=== PATIENT | female | born 1960 | race Caucasian/White ===

== ENCOUNTER 2021-08-18 17:56 | Inpatient (IN) ==
[2021-08-18] MEDS: Gabapentin 400 MG CAPSULE PO SCH (20:39)
[2021-08-18] MEDS: traZODone 50 MG TABLET PO SCH (20:39)
[2021-08-18] MEDS ORDERED: Insulin DETEMIR 100 UNIT/ML per UNIT SUBQ ONE (21:00)
[2021-08-18] MEDS ORDERED: *HR* OxyCODONE Immed Rel 5 MG TABLET PO PRN (21:27)
[2021-08-18] MEDS: *HR* OxyCODONE Immed Rel 5 MG TABLET PO PRN (21:36)
[2021-08-19] MEDS: *HR* OxyCODONE Immed Rel 5 MG TABLET PO PRN ×3 (05:20→20:06)
[2021-08-19] MEDS: Cefepime HCl 2,000 MG in Water for inj. (sterile) 20 ML IVP SCH ×2 (05:39→17:33)
[2021-08-19] MEDS ORDERED: Dextrose Gel 15 GM/37.5 ML TUBE PO PRN ×2 (07:39)
[2021-08-19] MEDS ORDERED: *HR* Dextrose 50 % in Water (Syg) 50 ML SYRINGE IVP PRN (07:39)
[2021-08-19] MEDS ORDERED: D5% in Water 1,000 ML IVC PRN (07:39)
[2021-08-19 08:17] LABS: Basophils # 0.1 K/mcL (0.0-0.2); Basophils % 0.4 %; Eosinophils # 0.1 K/mcL (0.0-0.6); Eosinophils % 0.4 %; Hematocrit 38.2 % (35.3-44.9); Lymphocytes # 1.2 K/mcL (0.6-4.6); Mean Corpuscular HGB Conc 31.4 g/dL (31.6-35.5); Mean Corpuscular Hemoglobin 26.4 pg (28.0-33.3); Mean Corpuscular Volume 84.1 fL (83.0-100.0); Mean Platelet Volume 11.2 fL (9.4-12.4); Monocytes % 6.9 %; Neutrophils # 10.9 K/mcL (1.6-8.9); Nucleated Red Blood Cells 0.1 /100 WBC (0); Platelet Count 286 K/mcL (140-400); Red Blood Count 4.54 M/mcL (3.82-4.97); Red Cell Distribution Width 13.9 % (11.5-14.5); Segmented Neutrophils % 79.3 %; White Blood Count 13.7 K/mcL (4.3-11.1)
[2021-08-19 08:22] LABS: BUN/Creatinine Ratio 14 (6-26); Blood Urea Nitrogen 7 mg/dL (8-23); Calcium 8.5 mg/dL (8.6-10.3); Carbon Dioxide 32 mEq/L (23-29); Chloride 96 mEq/L (98-107); Glucose 275 mg/dL (70-105); Osmolality,Calculated 292 (280-300); Potassium 3.7 mEq/L (3.5-5.1); Sodium 137 mEq/L (136-145); eGFR For African Americans > 60 (> 60); eGFR For Non-African Americans > 60 (> 60)
[2021-08-19] MEDS: Gabapentin 400 MG CAPSULE PO SCH ×3 (08:41→20:05)
[2021-08-19] MEDS: Insulin DETEMIR 100 UNIT/ML X5UNITS SUBQ SCH ×2 (08:41→20:41)
[2021-08-19] MEDS: Insulin LISPRO 300 UNITS/3 ML VIAL SUBQ SCH ×3 (08:42→17:33)
[2021-08-19] MEDS: Furosemide 20 MG TABLET PO SCH (12:37)
[2021-08-19] MEDS: traZODone 50 MG TABLET PO SCH (20:06)
[2021-08-20] MEDS: Cefepime HCl 2,000 MG in Water for inj. (sterile) 20 ML IVP SCH ×2 (06:12→17:51)
[2021-08-20] MEDS: *HR* OxyCODONE Immed Rel 5 MG TABLET PO PRN ×3 (06:12→20:23)
[2021-08-20] MEDS: *HR* Enoxaparin 40 MG/0.4 ML SYRINGE SQ SCH (06:13)
[2021-08-20] MEDS: Furosemide 20 MG TABLET PO SCH (08:27)
[2021-08-20] MEDS: Insulin DETEMIR 100 UNIT/ML X5UNITS SUBQ SCH ×2 (08:27→20:25)
[2021-08-20] MEDS: Insulin LISPRO 300 UNITS/3 ML VIAL SUBQ SCH ×3 (08:28→16:28)
[2021-08-20] MEDS: Gabapentin 400 MG CAPSULE PO SCH ×3 (08:28→20:24)
[2021-08-20] MEDS: traZODone 50 MG TABLET PO SCH (20:25)
[2021-08-20] MEDS: Acetaminophen 325 MG TABLET PO PRN (23:52)
[2021-08-21] MEDS: Cefepime HCl 2,000 MG in Water for inj. (sterile) 20 ML IVP SCH ×2 (06:19→17:21)
[2021-08-21] MEDS: *HR* Enoxaparin 40 MG/0.4 ML SYRINGE SQ SCH (06:21)
[2021-08-21] MEDS: *HR* OxyCODONE Immed Rel 5 MG TABLET PO PRN ×2 (08:22→14:27)
[2021-08-21] MEDS: Gabapentin 400 MG CAPSULE PO SCH ×3 (08:22→20:24)
[2021-08-21] MEDS: Furosemide 20 MG TABLET PO SCH (08:22)
[2021-08-21] MEDS: Insulin LISPRO 300 UNITS/3 ML VIAL SUBQ SCH ×3 (08:26→17:22)
[2021-08-21] MEDS: Insulin DETEMIR 100 UNIT/ML X5UNITS SUBQ SCH ×2 (09:04→20:25)
[2021-08-21] MEDS: Sennosides/Docusate Sodium TABLET PO SCH ×2 (12:02→20:25)
[2021-08-21] MEDS: Ketorolac 30 MG/ML VIAL IVP PRN (14:27)
[2021-08-21] MEDS: traZODone 50 MG TABLET PO SCH (20:24)
[2021-08-22] MEDS: *HR* Enoxaparin 40 MG/0.4 ML SYRINGE SQ SCH (05:30)
[2021-08-22] MEDS: Cefepime HCl 2,000 MG in Water for inj. (sterile) 20 ML IVP SCH ×3 (07:46→16:30)
[2021-08-22] MEDS: Insulin LISPRO 300 UNITS/3 ML VIAL SUBQ SCH ×3 (08:07→16:27)
[2021-08-22] MEDS: Furosemide 20 MG TABLET PO SCH (08:07)
[2021-08-22] MEDS: Sennosides/Docusate Sodium TABLET PO SCH ×2 (08:07→20:13)
[2021-08-22] MEDS: Gabapentin 400 MG CAPSULE PO SCH ×3 (08:07→20:14)
[2021-08-22 08:17] LABS: Basophils % 0.2 %; Eosinophils # 0.1 K/mcL (0.0-0.6); Eosinophils % 0.9 %; Hematocrit 37.3 % (35.3-44.9); Hemoglobin 11.4 g/dL (11.5-15.4); Immature Granulocytes % 1.6 % (0-4); Lymphocytes % 10.2 %; Mean Corpuscular HGB Conc 30.6 g/dL (31.6-35.5); Mean Corpuscular Hemoglobin 26.5 pg (28.0-33.3); Mean Corpuscular Volume 86.5 fL (83.0-100.0); Mean Platelet Volume 9.7 fL (9.4-12.4); Monocytes # 0.6 K/mcL (0.0-1.3); Monocytes % 6.6 %; Neutrophils # 7.6 K/mcL (1.6-8.9); Platelet Count 378 K/mcL (140-400); Red Blood Count 4.31 M/mcL (3.82-4.97); Red Cell Distribution Width 14.1 % (11.5-14.5); Segmented Neutrophils % 80.5 %; White Blood Count 9.5 K/mcL (4.3-11.1)
[2021-08-22 08:30] LABS: BUN/Creatinine Ratio 13 (6-26); Blood Urea Nitrogen 7 mg/dL (8-23); Calcium 8.7 mg/dL (8.6-10.3); Carbon Dioxide 31 mEq/L (23-29); Chloride 96 mEq/L (98-107); Glucose 345 mg/dL (70-105); Osmolality,Calculated 294 (280-300); Potassium 3.9 mEq/L (3.5-5.1); Sodium 136 mEq/L (136-145); eGFR For African Americans > 60 (> 60); eGFR For Non-African Americans > 60 (> 60)
[2021-08-22] MEDS: Insulin DETEMIR 100 UNIT/ML X5UNITS SUBQ SCH ×2 (08:46→20:17)
[2021-08-22] MEDS: Acetaminophen 325 MG TABLET PO PRN (08:46)
[2021-08-22] MEDS: *HR* OxyCODONE Immed Rel 5 MG TABLET PO PRN ×2 (12:31→20:14)
[2021-08-22] MEDS: Ketorolac 30 MG/ML VIAL IVP PRN (14:16)
[2021-08-22] MEDS: traZODone 50 MG TABLET PO SCH (20:14)
[2021-08-23] MEDS: *HR* OxyCODONE Immed Rel 5 MG TABLET PO PRN ×3 (03:46→21:37)
[2021-08-23] MEDS: *HR* Enoxaparin 40 MG/0.4 ML SYRINGE SQ SCH (05:54)
[2021-08-23] MEDS: Acetaminophen 325 MG TABLET PO PRN (05:57)
[2021-08-23] MEDS: Insulin LISPRO 300 UNITS/3 ML VIAL SUBQ SCH ×3 (09:15→17:48)
[2021-08-23] MEDS: Insulin DETEMIR 100 UNIT/ML X5UNITS SUBQ SCH ×2 (10:15→21:38)
[2021-08-23] MEDS: Furosemide 20 MG TABLET PO SCH (11:04)
[2021-08-23] MEDS: Sennosides/Docusate Sodium TABLET PO SCH ×2 (11:05→21:39)
[2021-08-23] MEDS: Gabapentin 400 MG CAPSULE PO SCH ×3 (11:05→21:38)
[2021-08-23] MEDS ORDERED: Ondansetron ODT 4 MG TAB.RAPDIS SL PRN (11:50)
[2021-08-23] MEDS: Ketorolac 30 MG/ML VIAL IVP PRN (12:07)
[2021-08-23] MEDS: Cefepime HCl 2,000 MG in 0.9 % Sodium Chloride Mini Bag 100 ML IVPB SCH (17:44)
[2021-08-23] MEDS: traZODone 50 MG TABLET PO SCH (21:38)
[2021-08-24] MEDS: *HR* OxyCODONE Immed Rel 5 MG TABLET PO PRN ×2 (04:54→11:14)
[2021-08-24] MEDS: *HR* Enoxaparin 40 MG/0.4 ML SYRINGE SQ SCH (05:34)
[2021-08-24] MEDS: Cefepime HCl 2,000 MG in 0.9 % Sodium Chloride Mini Bag 100 ML IVPB SCH ×2 (05:36→18:08)
[2021-08-24] MEDS: Furosemide 20 MG TABLET PO SCH (08:24)
[2021-08-24] MEDS: Insulin LISPRO 300 UNITS/3 ML VIAL SUBQ SCH ×3 (08:25→17:26)
[2021-08-24] MEDS: Insulin DETEMIR 100 UNIT/ML X5UNITS SUBQ SCH ×2 (08:25→20:17)
[2021-08-24] MEDS: Sennosides/Docusate Sodium TABLET PO SCH ×2 (08:25→20:17)
[2021-08-24] MEDS: Gabapentin 400 MG CAPSULE PO SCH ×3 (08:25→20:16)
[2021-08-24] MEDS: Ketorolac 30 MG/ML VIAL IVP PRN ×2 (11:14→20:44)
[2021-08-24] MEDS: traZODone 50 MG TABLET PO SCH (20:16)
[2021-08-24] MEDS: Lactobacillus 1 EACH CAP.SPRINK PO SCH (20:52)
[2021-08-25] MEDS: Cefepime HCl 2,000 MG in 0.9 % Sodium Chloride Mini Bag 100 ML IVPB SCH ×2 (05:43→18:11)
[2021-08-25] MEDS: *HR* Enoxaparin 40 MG/0.4 ML SYRINGE SQ SCH (05:44)
[2021-08-25 06:06] LABS: Basophils % 0.4 %; Eosinophils # 0.1 K/mcL (0.0-0.6); Eosinophils % 0.7 %; Hematocrit 35.3 % (35.3-44.9); Hemoglobin 10.5 g/dL (11.5-15.4); Immature Granulocytes % 1.5 % (0-4); Lymphocytes # 1.1 K/mcL (0.6-4.6); Lymphocytes % 10.4 %; Mean Corpuscular HGB Conc 29.7 g/dL (31.6-35.5); Mean Corpuscular Hemoglobin 25.9 pg (28.0-33.3); Mean Corpuscular Volume 87.2 fL (83.0-100.0); Mean Platelet Volume 9.6 fL (9.4-12.4); Monocytes # 0.8 K/mcL (0.0-1.3); Monocytes % 7.8 %; Neutrophils # 8.3 K/mcL (1.6-8.9); Platelet Count 360 K/mcL (140-400); Red Blood Count 4.05 M/mcL (3.82-4.97); Segmented Neutrophils % 79.2 %; White Blood Count 10.5 K/mcL (4.3-11.1)
[2021-08-25 06:24] LABS: BUN/Creatinine Ratio 18 (6-26); Blood Urea Nitrogen 10 mg/dL (8-23); Calcium 8.5 mg/dL (8.6-10.3); Carbon Dioxide 31 mEq/L (23-29); Chloride 98 mEq/L (98-107); Glucose 281 mg/dL (70-105); Osmolality,Calculated 291 (280-300); Potassium 3.9 mEq/L (3.5-5.1); Sodium 136 mEq/L (136-145); eGFR For African Americans > 60 (> 60); eGFR For Non-African Americans > 60 (> 60)
[2021-08-25] MEDS: Lactobacillus 1 EACH CAP.SPRINK PO SCH ×2 (08:47→21:11)
[2021-08-25] MEDS: Gabapentin 400 MG CAPSULE PO SCH ×3 (08:47→21:11)
[2021-08-25] MEDS: *HR* OxyCODONE Immed Rel 5 MG TABLET PO PRN ×2 (08:47→18:11)
[2021-08-25] MEDS: Insulin LISPRO 300 UNITS/3 ML VIAL SUBQ SCH ×3 (08:47→17:06)
[2021-08-25] MEDS: Furosemide 20 MG TABLET PO SCH (08:47)
[2021-08-25] MEDS: Sennosides/Docusate Sodium TABLET PO SCH ×2 (08:48→21:10)
[2021-08-25] MEDS: Insulin DETEMIR 100 UNIT/ML X5UNITS SUBQ SCH ×2 (08:48→21:11)
[2021-08-25] MEDS: traZODone 50 MG TABLET PO SCH (21:10)
[2021-08-25] MEDS: Acetaminophen 325 MG TABLET PO PRN (21:10)
[2021-08-26] MEDS: *HR* Enoxaparin 40 MG/0.4 ML SYRINGE SQ SCH (05:32)
[2021-08-26] MEDS: Cefepime HCl 2,000 MG in 0.9 % Sodium Chloride Mini Bag 100 ML IVPB SCH ×2 (05:32→17:59)
[2021-08-26] MEDS: Acetaminophen 325 MG TABLET PO PRN (05:37)
[2021-08-26] MEDS: Furosemide 20 MG TABLET PO SCH (08:11)
[2021-08-26] MEDS: Sennosides/Docusate Sodium TABLET PO SCH ×2 (08:12→21:11)
[2021-08-26] MEDS: Gabapentin 400 MG CAPSULE PO SCH ×3 (08:12→21:12)
[2021-08-26] MEDS: Lactobacillus 1 EACH CAP.SPRINK PO SCH ×2 (08:13→21:11)
[2021-08-26] MEDS: Insulin LISPRO 300 UNITS/3 ML VIAL SUBQ SCH ×3 (08:14→17:59)
[2021-08-26] MEDS: Insulin DETEMIR 100 UNIT/ML X5UNITS SUBQ SCH ×2 (09:10→21:12)
[2021-08-26] MEDS: *HR* OxyCODONE Immed Rel 5 MG TABLET PO PRN ×2 (10:56→18:28)
[2021-08-26] MEDS: traZODone 50 MG TABLET PO SCH (21:11)
[2021-08-27] MEDS: Cefepime HCl 2,000 MG in 0.9 % Sodium Chloride Mini Bag 100 ML IVPB SCH ×2 (05:13→17:35)
[2021-08-27] MEDS: *HR* Enoxaparin 40 MG/0.4 ML SYRINGE SQ SCH (05:14)
[2021-08-27] MEDS: Furosemide 20 MG TABLET PO SCH (08:56)
[2021-08-27] MEDS: Lactobacillus 1 EACH CAP.SPRINK PO SCH ×2 (08:56→22:05)
[2021-08-27] MEDS: Sennosides/Docusate Sodium TABLET PO SCH ×2 (08:56→22:05)
[2021-08-27] MEDS: Gabapentin 400 MG CAPSULE PO SCH ×3 (08:56→22:06)
[2021-08-27] MEDS: Insulin LISPRO 300 UNITS/3 ML VIAL SUBQ SCH ×3 (08:57→17:32)
[2021-08-27] MEDS: Insulin DETEMIR 100 UNIT/ML X5UNITS SUBQ SCH ×2 (09:09→22:06)
[2021-08-27] MEDS: Acetaminophen 325 MG TABLET PO PRN (12:07)
[2021-08-27] MEDS: *HR* OxyCODONE Immed Rel 5 MG TABLET PO PRN ×2 (17:35→23:35)
[2021-08-27] MEDS: traZODone 50 MG TABLET PO SCH (22:05)
[2021-08-28] MEDS: *HR* Enoxaparin 40 MG/0.4 ML SYRINGE SQ SCH (05:51)
[2021-08-28] MEDS: Cefepime HCl 2,000 MG in 0.9 % Sodium Chloride Mini Bag 100 ML IVPB SCH ×2 (05:51→17:36)
[2021-08-28 06:36] LABS: Basophils % 0.3 %; Eosinophils # 0.2 K/mcL (0.0-0.6); Eosinophils % 1.7 %; Hemoglobin 10.8 g/dL (11.5-15.4); Immature Granulocytes % 0.8 % (0-4); Lymphocytes # 0.9 K/mcL (0.6-4.6); Lymphocytes % 10.2 %; Mean Corpuscular HGB Conc 30.9 g/dL (31.6-35.5); Mean Corpuscular Hemoglobin 26.2 pg (28.0-33.3); Mean Corpuscular Volume 84.7 fL (83.0-100.0); Mean Platelet Volume 9.1 fL (9.4-12.4); Monocytes # 0.6 K/mcL (0.0-1.3); Monocytes % 7.2 %; Neutrophils # 6.9 K/mcL (1.6-8.9); Platelet Count 400 K/mcL (140-400); Red Blood Count 4.13 M/mcL (3.82-4.97); Red Cell Distribution Width 13.9 % (11.5-14.5); Segmented Neutrophils % 79.8 %; White Blood Count 8.7 K/mcL (4.3-11.1)
[2021-08-28] MEDS: Insulin LISPRO 300 UNITS/3 ML VIAL SUBQ SCH ×3 (08:37→17:38)
[2021-08-28] MEDS: Furosemide 20 MG TABLET PO SCH (08:38)
[2021-08-28] MEDS: Lactobacillus 1 EACH CAP.SPRINK PO SCH ×2 (08:38→19:53)
[2021-08-28] MEDS: Sennosides/Docusate Sodium TABLET PO SCH ×2 (08:39→19:54)
[2021-08-28] MEDS: Insulin DETEMIR 100 UNIT/ML X5UNITS SUBQ SCH ×2 (08:39→21:03)
[2021-08-28] MEDS: Gabapentin 400 MG CAPSULE PO SCH ×3 (08:39→19:54)
[2021-08-28] MEDS: Acetaminophen 325 MG TABLET PO PRN (13:57)
[2021-08-28] MEDS: *HR* OxyCODONE Immed Rel 5 MG TABLET PO PRN (19:53)
[2021-08-28] MEDS: traZODone 50 MG TABLET PO SCH (19:54)
[2021-08-29] MEDS: *HR* Enoxaparin 40 MG/0.4 ML SYRINGE SQ SCH (05:23)
[2021-08-29] MEDS: Insulin LISPRO 300 UNITS/3 ML VIAL SUBQ SCH ×3 (08:47→17:19)
[2021-08-29] MEDS: *HR* OxyCODONE Immed Rel 5 MG TABLET PO PRN ×2 (08:48→23:45)
[2021-08-29] MEDS: Lactobacillus 1 EACH CAP.SPRINK PO SCH ×2 (08:48→19:56)
[2021-08-29] MEDS: Sennosides/Docusate Sodium TABLET PO SCH ×2 (08:49→19:56)
[2021-08-29] MEDS: Furosemide 20 MG TABLET PO SCH (08:49)
[2021-08-29] MEDS: Gabapentin 400 MG CAPSULE PO SCH ×3 (08:49→19:56)
[2021-08-29] MEDS: Insulin DETEMIR 100 UNIT/ML X5UNITS SUBQ SCH ×2 (08:50→21:57)
[2021-08-29] MEDS: Acetaminophen 325 MG TABLET PO PRN (13:43)
[2021-08-29 18:48] VITALS: TEMP 98.1
[2021-08-29] MEDS: traZODone 50 MG TABLET PO SCH (19:56)
[2021-08-30] MEDS: *HR* Enoxaparin 40 MG/0.4 ML SYRINGE SQ SCH (06:23)
[2021-08-30] MEDS: Insulin LISPRO 300 UNITS/3 ML VIAL SUBQ SCH ×2 (08:09→12:25)
[2021-08-30] MEDS: Sennosides/Docusate Sodium TABLET PO SCH (08:13)
[2021-08-30] MEDS: Furosemide 20 MG TABLET PO SCH (08:13)
[2021-08-30] MEDS: Lactobacillus 1 EACH CAP.SPRINK PO SCH (08:14)
[2021-08-30] MEDS: Insulin DETEMIR 100 UNIT/ML X5UNITS SUBQ SCH (08:14)
[2021-08-30] MEDS: Gabapentin 400 MG CAPSULE PO SCH ×2 (08:14→15:09)
[2021-08-30 08:47] VITALS: BP 116/67; PULSE 86; RESP 16; O2SAT 94
[2021-08-30] MEDS: *HR* OxyCODONE Immed Rel 5 MG TABLET PO PRN (15:09)
== END 2021-08-30 16:11 | disposition home health service (06) | DRG 603 ==
LOC: INPPIK 18:17
PROVIDERS: ADMIT Family Medicine; ATTEND Family Medicine